=== PATIENT | female | born 1980 | race Asian ===

== ENCOUNTER 2024-03-24 15:44 | Emergency (ER) | payer BC, OTHER ==
[~2024-03-24] VITALS: Ht 154.9 cm; Wt 52.2 kg
[2024-03-24] MEDS ORDERED: KETOROLAC TROMETHAMINE INJ 30 MG/ML VIAL ONE (17:11)
[2024-03-24] MEDS ORDERED: HYDROCODONE/APAP 5/325MG TABLET ONE (17:11)
[2024-03-24] MEDS: KETOROLAC TROMETHAMINE INJ 30 MG/ML VIAL IM ONE (17:21)
[2024-03-24] MEDS: HYDROCODONE/APAP 5/325MG TABLET PO ONE (17:21)
[2024-03-24] MEDS ORDERED: MORPHINE SULFATE INJ 4 MG/ML DISP.SYRIN ONE (18:12)
[2024-03-24] MEDS: MORPHINE SULFATE INJ 2 MG/ML DISP.SYRIN IV ONE ×2 (18:31→19:27)
[2024-03-24] MEDS ORDERED: HYDR-4209 PO (19:06)
[2024-03-24] MEDS ORDERED: BENZ-13 PO (19:06)
[2024-03-24] MEDS ORDERED: GUAI1TBM19 PO (19:06)
[2024-03-24] MEDS ORDERED: KETO10TA2 PO (19:06)
[2024-03-24] MEDS ORDERED: MORPHINE SULFATE INJ 2 MG/ML DISP.SYRIN ONE (19:14)
[2024-03-24 19:28] VITALS: BP 125/88; TEMP 98; O2SAT 99
== END 2024-03-24 19:28 | disposition home or self-care (01) ==
LOC: ER 15:52
DX: S22.31XA Fracture of one rib, right side, initial encounter for closed fracture (principal); R05.9 Cough, unspecified; X58.XXXA Exposure to other specified factors, initial encounter; Y93.89 Activity, other specified; Y92.89 Other specified places as the place of occurrence of the external cause; Y99.8 Other external cause status
CPT/HCPCS: 99284; 96374; 93005; 96376; 71100; 96372; J2270 ×2; J1885